=== PATIENT | male | born 1935 | race Caucasian/White ===

== ENCOUNTER → 2018-01-20 | Day surgery (SDC) | payer MEDICARE, OTHER ==
[~2018-01-20] MED LIST: ASPI-630 PO; ATOR40TA PO; BUPIVACAINE-EPI 0.5%-1:200000 50 ML VIAL. ONE; CELE200C PO; CLINDAMYCIN 900MG PREMIX 50 ML IV PRN; DEXAMETHASONE SOD PHOS 20 MG/5 ML VIAL. ONE; FINA5TAB PO; FINA5TAB4 PO; HYDR30CA3 PO; HYDROmorphone 2 MG/ML VIAL IV PRN; IV RINGERS,LACTATED 1000ML 1,000 ML IV SCH; LIDOCAINE 1% PF 2 ML VIAL. ID PRN; LIDOCAINE 2% PF Vial for OR 5 ML VIAL. ONE; LORA10TA68 PO; MORPHINE SULFATE 2 MG/ML VIAL. IV PRN; MULT1TAB52 PO; ONDANSETRON PF 4 MG/2 ML VIAL. IV PRN; ONDANSETRON PF 4 MG/2 ML VIAL. ONE; PROCHLORPERAZINE 10 MG/2 ML VIAL. IV PRN; PROPOFOL 20 ML IV ONE; ROCURONIUM 50 MG/5 ML VIAL. ONE; TAMS0.4C97 PO; ePHEDrine PF IN SALINE 50 MG/5 ML DISP.SYRIN IV ONE; fentaNYL PF VIAL 100 MCG/2 ML VIAL IV PRN; fentaNYL PF VIAL 100 MCG/2 ML VIAL ONE
--- NOTE | 2018-01-20 09:31 | DISCH ---
DISCHARGE INSTRUCTIONS Condition on Discharge Condition on Discharge: Stable Activity After Discharge Activity Instructions for Disc: Activity as tolerated Lifting Instructions after Dis: No heavy lifting, No pulling or pushing, Do not lift >10 pounds Exercise Instruction after Dis: Progress as tolerated Weight Bearing Status after Di: As tolerated Diet after Discharge Diet after Discharge: Regular Wound Incision Care Wound/Incision Care: Ice to area for comfort, Change dressing (May remove dressing in 2 days, retain butterfly strips) Wound Care Equipment: Dressings Community/Resources/Services Services at Discharge: PT EVALUATE & TREAT (already scheduled for physical therapy, may continue without restriction) Contacting the [facility] after DC Call your doctor for: Concerns you may have Follow-Up Follow up with: Mary Jane 1 week Treatment/Equipment after DC Adaptive Equipment Issued: None JARET TIERNEY MD Jan 20, 2018 09:31
[2018-01-20 09:37] VITALS: BP 128/57
--- NOTE | 2018-01-20 14:21 | PDOC4 ---
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 Repeat x-rays showed the possibility of a single screw being somewhat prominent. And perhaps penetrating the articular surface although only by about a millimeter of where the subchondral bone is penetrated. I told him nevertheless this certainly could be symptomatic and he prefers removal of the screw. I went over with him that we would retain the others as they continue to be well positioned despite this single screw potentially penetrating the articular surface. We covered that this would not result in any additional restrictions for him. All his questions were answered he wishes to proceed with surgical evaluation and treatment. Operative text: Patient was identified procedure verified patient placed in the supine position on the operating table with a left arm board attached. The left upper extremity was prepped and draped in standard sterile fashion. After timeout was performed patient procedure identified and verified the specific screw was localized in the plate by comparing to a sterile unused plate. I then made a 2 cm incision longitudinally using fluoroscopic guidance and the specific area dissected Down to the plate itself and identified the specific screw and removed it under fluoroscopic guidance. Remaining screws were checked under multiple fluoroscopic guidance and found to be well-placed no penetration of the articular surface he is having progressive healing with an otherwise well maintained glenohumeral joint surface. Thorough irrigation carried out normal saline solution closure accomplished with buried Vicryl suture subcuticular Monocryl Steri-Strips and Mastisol followed by sterile dressings he was returned to recovery room in stable condition having tolerated procedure well JARET TIERNEY MD Jan 20, 2018 14:21
== END | disposition home or self-care (01) ==
LOC: SURG 06:08
PROVIDERS: ATTEND Orthopaedic Surgery
DX: T84.84XA Pain due to internal orthopedic prosthetic devices, implants and grafts, initial encounter (principal); G89.18 Other acute postprocedural pain; Z88.0 Allergy status to penicillin; Z88.2 Allergy status to sulfonamides; E78.5 Hyperlipidemia, unspecified; Z96.652 Presence of left artificial knee joint; Z95.1 Presence of aortocoronary bypass graft; Z98.890 Other specified postprocedural states; Z98.1 Arthrodesis status; Z90.49 Acquired absence of other specified parts of digestive tract; Z98.42 Cataract extraction status, left eye; Z98.41 Cataract extraction status, right eye; Z96.1 Presence of intraocular lens; Z79.899 Other long term (current) drug therapy; Y83.1 Surgical operation with implant of artificial internal device as the cause of abnormal reaction of the patient, or of later complication, without mention of misadventure at the time of the procedure; Y92.89 Other specified places as the place of occurrence of the external cause; Z88.8 Allergy status to other drugs, medicaments and biological substances
CPT/HCPCS: 20680; 76000; J1100; J2001; J2405; J2704; J3010; J3490; J7120